=== PATIENT | female | born 1955 ===

== ENCOUNTER 2019-03-25 10:38 | Emergency (ER) | payer BC, OTHER ==
[~2019-03-25] VITALS: Ht 167.6 cm; Wt 95.0 kg
[~2019-03-25 10:38] MED LIST: NO MEDS
--- NOTE | 2019-03-25 10:51 | NUR ---
PT AMBULATORY WITH STEADY GAIT FROM TRIAGE TO ROOM. CHANGING INTO GOWN NOW.
--- NOTE | 2019-03-25 10:58 | NUR ---
PT HERE TODAY FOR LOW BP. STATES SHE FELT DIZZY, NAUSEAS, AND LIKE SHE WAS GOING TO HAVE DIARRHEA AT WORK. DID NOT HAVE DIARRHEA. STATES BP WAS TAKEN AT WORK AND "BOTTOM NUMBER WAS LESS THAN 100." UNSURE OF ACTUAL NUMBER. DENIES CP. DENIES SOB. STATES SHE HAS BEEN HAVING HIGH BP AND HAS BEEN ON BP MEDS SINCE DECEMBER. CURRENTLY RESTING ON [employer]. CONNECTED TO MONITOR. VSS. CURRENT BP 117/56. HR 93. PA AT BEDSIDE ASSESSING PT NOW.
--- NOTE | 2019-03-25 11:06 | NUR ---
ORTHOSTATIC VS PERFORMED. PT DENIES BEING LIGHTHEADED/DIZZY DURING PROCEDURE. RESTING ON GURNEY. NADN. VSS.
[2019-03-25] MEDS ORDERED: LOSA25TA25 PO (11:10)
[2019-03-25] MEDS ORDERED: MELO15TA24 PO (11:10)
[2019-03-25] MEDS ORDERED: MONT10TA9 PO (11:10)
[2019-03-25] MEDS ORDERED: FEXO180T15 PO (11:10)
[2019-03-25] MEDS ORDERED: ROSU20TA2 PO (11:10)
[2019-03-25] MEDS ORDERED: ERGO500017 PO (11:10)
[2019-03-25] MEDS ORDERED: GUAI100G2 PO (11:10)
[2019-03-25] MEDS ORDERED: FLUT60LO NS (11:12)
--- NOTE | 2019-03-25 11:12 | NUR ---
LAB AT BEDSIDE.
[2019-03-25 11:24] LABS: BASOPHILS # (AUTO) 0.02 x10^3/uL (0-0.1); BASOPHILS % (AUTO) 0 % (0-1); EOSINOPHILS # (AUTO) 0.04 x10^3/uL (0-0.4); EOSINOPHILS % (AUTO) 1 % (1-7); LYMPHOCYTES # (AUTO) 0.31 x10^3/uL (1-3.4); LYMPHOCYTES % (AUTO) 4 % (22-44); MD NO; MEAN CORPUSCULAR HEMOGLOBIN 32.7 pg (27.0-34.8); MEAN CORPUSCULAR HGB CONC 33.1 g/dL (32.4-35.8); MEAN CORPUSCULAR VOLUME 98.9 fL (80-100); MONOCYTES # (AUTO) 0.13 x10^3/uL (0.2-0.8); MONOCYTES % (AUTO) 2 % (2-9); NEUTROPHILS # (AUTO) 7.69 x10^3/uL (1.8-6.8); NEUTROPHILS % (AUTO) 94 % (42-75); PLATELET COUNT 233 x10^3/uL (130-400); RED CELL DISTRIBUTION WIDTH 13.9 % (9.6-15.2)
[2019-03-25 11:34] LABS: ALANINE AMINOTRANSFERASE 31 U/L (12-78); ALBUMIN 3.6 g/dL (3.4-5.0); ANION GAP 4 mmol/L (5-15); CALCIUM 8.4 mg/dL (8.5-10.1); CHLORIDE 108 mmol/L (98-107); CREATININE 0.82 mg/dL (0.55-1.02)
[2019-03-25 11:39] LABS: ALKALINE PHOSPHATASE 87 U/L (45-117); BILIRUBIN,TOTAL 0.4 mg/dL (0.2-1.0); TOTAL PROTEIN 7.9 g/dL (6.4-8.2); TROPONIN I < 0.015 ng/mL (0.000-0.045)
--- NOTE | 2019-03-25 12:09 | NUR ---
TASK RN: PT RESTING ON GURNEY. NADN. PAGAN.
[2019-03-25 13:01] VITALS: BP 119/60
--- NOTE | 2019-03-25 13:01 | NUR ---
PT RESTING ON GURNEY. NADN. MATHIASS. REQUESTING FOOD. WILL ASK
--- NOTE | 2019-03-25 13:12 | NUR ---
PT PROVIDED WITH FOOD THAT SHE BROUGHT FROM HOME.
--- NOTE | 2019-03-25 13:35 | NUR ---
PT AWARE OF DC PLAN. GETTING DRESSED NOW.
== END 2019-03-25 13:50 | disposition home or self-care (01) ==
LOC: ED 12:49
DX: R55 Syncope and collapse (principal); E78.5 Hyperlipidemia, unspecified; I10 Essential (primary) hypertension; Z90.710 Acquired absence of both cervix and uterus; R42 Dizziness and giddiness
CPT/HCPCS: 36415; 70450; 80053; 84484; 85025; 93005; 99284

== ENCOUNTER 2019-05-15 13:06 | Emergency (ER) | payer BC, OTHER ==
[~2019-05-15 13:06] MED LIST changes: +ERGO500017 PO; +FEXO180T15 PO; +FLUT60LO NS; +GUAI100G2 PO; +LOSA25TA25 PO; +MELO15TA24 PO; +MONT10TA9 PO; +ROSU20TA2 PO
--- NOTE | 2019-05-15 13:40 | NUR ---
PT WITH C/O OF GEN "NOT FEELING WELL AND LOW ENERGY" FOR THE LAST FEW MONTHS PER PT REPORT. PT ALSO WITH COUGH AND MUCOUS SINCE THIS YR. PT WAS ON LISINOPRIL AND WAS TAKEN OFF D/T COUGH. PT WAS AT [employer] YESTERDAY AND HAD STRESS TEST AND ECHOCARDIOGRAM. PT TO BP, CONT PULSE OX
--- NOTE | 2019-05-15 14:14 | NUR ---
PT TO IMAGING AT THIS TIME
[2019-05-15 14:16] LABS: BASOPHILS # (AUTO) 0.03 x10^3/uL (0-0.1); BASOPHILS % (AUTO) 1 % (0-1); EOSINOPHILS # (AUTO) 0.07 x10^3/uL (0-0.4); EOSINOPHILS % (AUTO) 3 % (1-7); LYMPHOCYTES # (AUTO) 0.83 x10^3/uL (1-3.4); LYMPHOCYTES % (AUTO) 27 % (22-44); MD NO; MEAN CORPUSCULAR HEMOGLOBIN 33.2 pg (27.0-34.8); MEAN CORPUSCULAR HGB CONC 33.4 g/dL (32.4-35.8); MEAN CORPUSCULAR VOLUME 99.3 fL (80-100); MEAN PLATELET VOLUME 7.2 fL (7.4-10.4); MONOCYTES # (AUTO) 0.27 x10^3/uL (0.2-0.8); MONOCYTES % (AUTO) 9 % (2-9); NEUTROPHILS # (AUTO) 1.83 x10^3/uL (1.8-6.8); NEUTROPHILS % (AUTO) 60 % (42-75); PLATELET COUNT 253 x10^3/uL (130-400); RED BLOOD COUNT 3.92 x10^6/uL (3.82-5.3); RED CELL DISTRIBUTION WIDTH 14.1 % (9.6-15.2)
[2019-05-15 14:21] LABS: ALBUMIN 3.6 g/dL (3.4-5.0); ANION GAP 7 mmol/L (5-15); CALCIUM 8.3 mg/dL (8.5-10.1); CHLORIDE 108 mmol/L (98-107); CREATININE 0.82 mg/dL (0.55-1.02)
[2019-05-15 14:31] LABS: FREE T4 (FREE THYROXINE) 1.27 ng/dL (0.76-1.46)
[2019-05-15 14:51] VITALS: BP 127/76
--- NOTE | 2019-05-15 14:51 | NUR ---
ERMD IN TO UPDATE PT ON POC
== END 2019-05-15 15:39 | disposition home or self-care (01) ==
LOC: ED 14:05
DX: J02.9 Acute pharyngitis, unspecified (principal); I10 Essential (primary) hypertension; Z85.3 Personal history of malignant neoplasm of breast; Z90.710 Acquired absence of both cervix and uterus
CPT/HCPCS: 36415; 70360; 80048; 82040; 84439; 84443; 85025; 93005; 99284

== ENCOUNTER 2019-05-20 11:43 | Emergency (ER) | payer BC, OTHER ==
[~2019-05-20] VITALS: Ht 167.6 cm; Wt 93.0 kg
--- NOTE | 2019-05-20 14:07 | NUR ---
BOTTOM MAN: PT TO ROOM FROM [facility]
[2019-05-20 15:11] VITALS: BP 110/67
--- NOTE | 2019-05-20 15:12 | NUR ---
ORTHOSTATIC VS COMPLETED NOTED AND DISCUSSED WITH DR. ZHANG.
--- NOTE | 2019-05-20 15:43 | NUR ---
LATE ENTRY 1538 Patient/Caregiver given discharge instructions and they have confirmed that they understand the instructions. Patient ambulatory with steady gait.
== END 2019-05-20 15:44 | disposition home or self-care (01) ==
LOC: ED 15:38
DX: I10 Essential (primary) hypertension (principal); R42 Dizziness and giddiness; E78.5 Hyperlipidemia, unspecified; Z90.710 Acquired absence of both cervix and uterus; Z85.3 Personal history of malignant neoplasm of breast
CPT/HCPCS: 93005; 99283

== ENCOUNTER 2019-06-04 09:11 | Emergency (ER) | payer BC, OTHER ==
[~2019-06-04] VITALS: Ht 167.6 cm; Wt 93.2 kg
[2019-06-04] MEDS ORDERED: CHLO25TA PO (09:35)
[2019-06-04] MEDS ORDERED: METO50TA4 PO (09:35)
[2019-06-04] MEDS ORDERED: METO200T47 PO (09:35)
[2019-06-04] MEDS ORDERED: ASPI-515 PO (09:35)
[2019-06-04] MEDS ORDERED: OMEP-110 PO (09:35)
[2019-06-04] MEDS ORDERED: BENZ-17 PO (09:35)
--- NOTE | 2019-06-04 09:36 | NUR ---
PT CAME IN CO OF THROAT TIGHTNESS AND HAVING A HARD TIME SWALLOWING FOOD. SHE IS SCHEDULED TO HAVE HER THROAT SCOPED ON FRIDAY. CALL LIGHT WITHIN REACH. WARM BLANKET PROVIDED.
[2019-06-04 10:14] LABS: BASOPHILS # (AUTO) 0.03 x10^3/uL (0-0.1); BASOPHILS % (AUTO) 1 % (0-1); EOSINOPHILS # (AUTO) 0.11 x10^3/uL (0-0.4); EOSINOPHILS % (AUTO) 2 % (1-7); LYMPHOCYTES # (AUTO) 0.74 x10^3/uL (1-3.4); LYMPHOCYTES % (AUTO) 15 % (22-44); MD NO; MEAN CORPUSCULAR HEMOGLOBIN 32.9 pg (27.0-34.8); MEAN CORPUSCULAR HGB CONC 34.1 g/dL (32.4-35.8); MEAN CORPUSCULAR VOLUME 96.6 fL (80-100); MEAN PLATELET VOLUME 7.1 fL (7.4-10.4); MONOCYTES # (AUTO) 0.53 x10^3/uL (0.2-0.8); MONOCYTES % (AUTO) 11 % (2-9); NEUTROPHILS # (AUTO) 3.52 x10^3/uL (1.8-6.8); NEUTROPHILS % (AUTO) 72 % (42-75); PLATELET COUNT 249 x10^3/uL (130-400); RED BLOOD COUNT 4.16 x10^6/uL (3.82-5.3)
[2019-06-04 10:26] LABS: ALBUMIN 3.7 g/dL (3.4-5.0); ANION GAP 7 mmol/L (5-15); CALCIUM 8.7 mg/dL (8.5-10.1); CHLORIDE 103 mmol/L (98-107); CREATININE 1.04 mg/dL (0.55-1.02)
--- NOTE | 2019-06-04 10:36 | NUR ---
PT IS GOING TO CT
[2019-06-04] MEDS ORDERED: OMNIPAQUE 350 MG/ML, 100ML BOTTLE ONE (10:57)
--- NOTE | 2019-06-04 11:09 | NUR ---
PT RESTING IN HOSPITAL BED. AWAITING LAB RESULTS
--- NOTE | 2019-06-04 12:30 | NUR ---
PT GETTING ESOPHAGRAM
--- NOTE | 2019-06-04 12:47 | NUR ---
PT BACK FROM ESOPHAGRAM. RESTING IN BED. AWAITING RESULTS. NO REQUESTS AT THIS TIME.
--- NOTE | 2019-06-04 13:32 | NUR ---
PT RESTING IN HOSPITAL BED. CALL LIGHT WITHIN REACH. NO REQUESTS AT THIS TIME
[2019-06-04 14:27] VITALS: BP 117/49
== END 2019-06-04 14:30 | disposition home or self-care (01) ==
LOC: ED 11:57
DX: R13.10 Dysphagia, unspecified (principal); I10 Essential (primary) hypertension; E78.5 Hyperlipidemia, unspecified; Z90.710 Acquired absence of both cervix and uterus; Z85.3 Personal history of malignant neoplasm of breast
CPT/HCPCS: 36415; 70491; 74220; 80048; 82040; 85025; 99284; Q9967

== ENCOUNTER → 2020-03-13 | Outpatient (CLI) | payer BC, MEDICARE, OTHER ==
[~2020-03-13] MED LIST changes: +ASPI-515 PO; +BENZ-17 PO; +CHLO25TA PO; +METO200T47 PO; +METO50TA4 PO; +MONT10TA11 PO; -MONT10TA9 PO; +OMEP-110 PO
== END | disposition home or self-care (01) ==
LOC: RAD 10:38
PROVIDERS: ATTEND Internal Medicine Hematology & Oncology
DX: C50.911 Malignant neoplasm of unspecified site of right female breast (principal)
CPT/HCPCS: 78306; A9503